=== PATIENT | male | born 1950 | race Caucasian/White ===

== ENCOUNTER → 2017-08-10 | Outpatient (CLI) | payer BC ==
[~2017-08-10] MED LIST: ASPI-319 PO; CLC100 PO; DORZ1SOL6 OPB; HYDR25SU20 PR; HYOS1TAB PO; INSDGI SC; INSU100I17 SC; LEVO100T84 PO; LSN/2025 PO; SIMV20TA2 PO
--- NOTE | 2017-08-10 13:06 | DIAGNOSTIC IMAGING REPORT ---
MRI THE RIGHT KNEE NO CONTRAST CLINICAL HISTORY: RIGHT KNEE PAIN COMPARISON STUDY: Outside conventional radiographic study dated 09/02/2016 FINDINGS: Imaging was performed in the sagittal, axial, and coronal planes. There is a suprapatellar joint effusion. The quadriceps and patellar tendons appear intact. The anterior and anterior cruciate ligaments appear intact. There are foci of marrow edema within the lateral tibial plateau, likely on a degenerative/stress related basis. 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 There is no evidence of medial or lateral collateral ligament disruption. There is a tear involving the posterior horn lateral meniscus. Degenerative signal changes are present at the medial meniscus. No discrete tears are visualized. 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 No evidence of cruciate or collateral ligament disruption 2. Tear involving the posterior horn of the lateral meniscus 3. 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 Mild chondromalacia patella 5. Small joint effusion Electronically signed by: George Kuo M.D. 08/10/2017 1:04 PM Dictated Date/Time: 08/10/2017 12:58 PM
== END | disposition home or self-care (01) ==
LOC: C.MRIBC 11:18
PROVIDERS: ATTEND Orthopaedic Surgery
DX: S83.281A Other tear of lateral meniscus, current injury, right knee, initial encounter (principal); M22.41 Chondromalacia patellae, right knee; X58.XXXA Exposure to other specified factors, initial encounter